=== PATIENT | male | born 1950 | race Caucasian/White ===

== ENCOUNTER → 2018-01-03 | Outpatient (CLI) | payer MEDICARE, OTHER ==
[2018-01-03 12:06] LABS: ANION GAP 10 (8-16); BLOOD UREA NITROGEN 16 mg/dl (7-20); CALCIUM 9.7 mg/dl (8.4-10.2); CARBON DIOXIDE 28 mmol/L (21-31); CHLORIDE 104 mmol/L (97-110); CREATININE 0.91 mg/dl (0.61-1.24); GLUCOSE 108 mg/dl (70-220); POTASSIUM 4.4 mmol/L (3.5-5.1); SODIUM 138 mmol/L (135-144)
[2018-01-03] MEDS: METOPROLOL 5 MG INJ (13:17)
[2018-01-03] MEDS: SOD CHLORIDE 0.9% 100 ML (13:53)
[2018-01-03] MEDS: IOHEXOL 100 ML (13:53)
== END | disposition home or self-care (01) ==
LOC: LAB 11:19
DX: R07.9 Chest pain, unspecified (principal)
CPT/HCPCS: 75571; 75574; 80048